=== PATIENT | female | born 1985 | race Caucasian/White ===

== ENCOUNTER → 2017-07-17 14:24 | Outpatient (CLI) | payer OTHER ==
[2015-04-16 06:29] VITALS: BMI 33.9
[~2017-07-17 14:24] MED LIST: ADIPEX-P37.5 MG PO; CALCIUM 500 + D1 TAB PO; COLACE100 MG PO; LEXAPRO20 MG PO; MELATONIN 3 MG1 TAB PO; PROVERA10 MG PO; ULTRAM50 MG PO; ZYRTEC10 MG PO
== END | disposition home or self-care (01) ==
LOC: D.RAD 14:00
DX: Z02.71 Encounter for disability determination (principal)